=== PATIENT | female | born 1985 ===

== ENCOUNTER 2017-08-15 14:21 | Emergency (ER) | payer SELFPAY ==
[2017-08-15 14:55] VITALS: O2SAT 100
[2017-08-15] MEDS ORDERED: Iohexol 240 (50 ml) PO STA (16:06)
[2017-08-15] MEDS ORDERED: Lactated Ringer's 1,000 ML IV STA (16:07)
[2017-08-15] MEDS ORDERED: Iohexol 240 (50 ml) ONE (16:12)
[2017-08-15 16:36] LABS: BASO # 0.1 K/uL (0.0-0.2); BASO % 0.9 % (0.0-2.0); EOS # 0.2 K/uL (0.0-0.7); EOS % 1.8 % (0.0-4.0); HEMATOCRIT 41.7 % (34.0-47.0); LYMPH # 2.8 K/uL (1.0-4.3); LYMPH % 32.1 % (20.0-40.0); MEAN CELL VOLUME 78.8 fL (81.0-99.0); MONO # 1.1 K/uL (0.0-0.8); MONO % 12.9 % (0.0-10.0); NRBC % 0.1 % (0.0-2.0); RED CELL DISTRIBUTION WIDTH 14.4 % (11.5-14.5); WHITE BLOOD COUNT 8.7 K/uL (4.8-10.8)
[2017-08-15 16:38] LABS: RBC URINE 20 /hpf (0-3); URINE BACTERIA RARE (<OCC); URINE BILIRUBIN NEGATIVE (NEGATIVE); URINE COLOR Yellow (YELLOW); URINE GLUCOSE (UA) NORMAL (Normal); URINE KETONE NEGATIVE (NEGATIVE); URINE LEUKOCYTE ESTERASE NEG Leu/uL (Negative); URINE PROTEIN NEGATIVE (NEGATIVE); URINE UROBILINOGEN NORMAL mg/dL (0.2-1.0); WBC URINE 2 /hpf (0-5)
[2017-08-15 16:39] LABS: URINE BLOOD 3+ (NEGATIVE)
[2017-08-15 16:53] LABS: CALCIUM 9.4 mg/dl (8.6-10.4); GFR AFRICAN-AMERICAN > 60
[2017-08-15 16:55] LABS: ALB/GLOB RATIO 1.3 (1.0-2.1); ALKALINE PHOSPHATASE 109 U/L (38-126); ALT/SGPT 28 U/L (9-52); AST/SGOT 60 U/L (14-36); BILIRUBIN,TOTAL 1.7 mg/dL (0.2-1.3); BLOOD UREA NITROGEN 15 mg/dL (7-17); CARBON DIOXIDE 25 mmol/L (22-30); CHLORIDE 104 mmol/L (98-107); GLUCOSE,RANDOM 110 mg/dL (65-105); POTASSIUM 5.5 mmol/L (3.6-5.2); SODIUM 138 mmol/L (132-148); TOTAL PROTEIN 7.9 g/dL (6.3-8.3)
--- NOTE | 2017-08-15 17:05 | C.PDOC ---
History Of Present Illness 31yo female, presents to ED for evaluation of diffuse abdominal pain for the past week. She also reports mild nausea, denies any vomiting, fever or dysuria. No other complaints. Time Seen by Provider: 08/15/17 15:55 Chief Complaint (Nursing): Abdominal Pain History Per: Patient History/Exam Limitations: no limitations Onset/Duration Of Symptoms: Days Current Symptoms Are (Timing): Still Present Location Of Pain/Discomfort: Diffuse Associated Symptoms: Nausea. denies: Fever, Vomiting Past Medical History Reviewed: Historical Data, Nursing Documentation, Vital Signs Vital Signs: Last Vital Signs Temp 98.6 F 08/15/17 18:36 Pulse 100 H 08/15/17 18:36 Resp 18 08/15/17 18:36 BP 116/70 08/15/17 18:36 Pulse Ox 100 08/15/17 18:36 - Medical History PMH: No Chronic Diseases Family History: States: No Known Family Hx - Social History Hx Alcohol Use: No Hx Substance Use: No - Immunization History Hx Influenza Vaccination: No Review Of Systems Except As Marked, All Systems Reviewed And Found Negative. Constitutional: Negative for: Fever Gastrointestinal: Positive for: Nausea, Abdominal Pain. Negative for: Vomiting , Diarrhea Genitourinary: Negative for: Dysuria Physical Exam - Physical Exam Appears: Non-toxic, No Acute Distress Skin: Normal Color Head: Atraumatic, Normacephalic Eye(s): bilateral: Normal Inspection Neck: Supple Cardiovascular: Rhythm Regular Respiratory: Normal Breath Sounds Gastrointestinal/Abdominal: Soft, Tenderness (diffuse) Back: Normal Inspection Extremity: Normal ROM Neurological/Psych: Oriented x3 ED Course And Treatment - Laboratory Results Result Diagrams: 08/15/17 16:25 08/15/17 16:25 O2 Sat by Pulse Oximetry: 100 (RA) Pulse Ox Interpretation: Normal - CT Scan/US CT Adomen/Pelvis Other Rad Studies (CT/US): Radiology Report Reviewed CT/US Interpretation: IMPRESSION: 1. No suspicious acute findings bilaterally. 2. Bilateral intrarenal calculi are nonobstructive and sub cm size, greater the right than left kidney. 3. 1.1 right adnexal cyst Medical Decision Making Medical Decision Making: Plan: -- CT Abdomen w/ PO & IV Contrast -- Labs -- Lactated Ringer's IV -- Pepcid 20 mg IVP -- Zofran 8 mg IVP Time: 183 Patient reports improvement of pain. Labs reviewed and within normal limits. Patient stable for discharge home. Disposition - Disposition Referrals: [facility] [Outside] [facility] [Outside] Disposition: HOME/ ROUTINE Disposition Time: 18:30 Condition: IMPROVED Additional Instructions: Thank you for letting us take care of you today. The emergency medical care you received today was directed at your acute symptoms. If you were prescribed any medication, please fill it and take as directed. It may take several days for your symptoms to resolve. Return to the Emergency Department if your symptoms worsen, do not improve, or if you have any other problems. Please contact your doctor or call one of the physicians/clinics you have been referred to that are listed on the Patient Visit Information form that is included in your discharge packet. Bring any paperwork you were given at discharge with you along with any medications you are taking to your follow up visit. Our treatment cannot replace ongoing medical care by a primary care provider (PCP) outside of the emergency department. Thank you for allowing the [facility] team to be part of your care today. Follow up with the clinic this week for outpatient care and management. Donnie por dejarnos atenderlo hoy. La atencin mdica de emergencia que recibi hoy estaba dirigida a mikki sntomas agudos. Si le prescribieron algn medicamento, llnelo y tome segn las indicaciones. Mikki sntomas pueden tardar varios martínez en resolverse. Regrese al Departamento de Emergencia si mikki s ntomas empeoran, no mejoran o si tiene algn otro problema. Comunquese con [place] mdico o llame a natalie de los mdicos / clnicas a los que amaro sido referido que figura en el formulario de Informacin de visita del paciente que se incluye en [place] paquete de marci. Traiga todos los documentos que recibi al momento del marci junto con los medicamentos que est tomando en [place] visita de seguimiento. Nuestro tratamiento no puede reemplazar la atencin mdica en curso por parte de un proveedor de atencin primaria (PCP) fuera del departamento de emergencias. Donnie por permitir que el equipo de [facility] sea parte de [place] cuidado hoy. Antony un seguimiento con la clnica esta semana para atencin y manejo ambulatorio. Prescriptions: Ranitidine HCl [Zantac] 150 mg PO BID #20 tablet Instructions: Gastritis (ED) Forms: Gen Discharge Inst [place]an - Clinical Impression Clinical Impression: Abdominal pain - Scribe Statement The provider has reviewed the documentation as recorded by the Scribe Melita Perez Provider Attestation: All medical record entries made by the Scribe were at my direction and personally dictated by me. I have reviewed the chart and agree that the record accurately reflects my personal performance of the history, physical exam, medical decision making, and the department course for this patient. I have also personally directed, reviewed, and agree with the discharge instructions and disposition.
[2017-08-15] MEDS ORDERED: Iodixanol 320 MG/ML 100 ML BOTTLE IV ONE (17:09)
--- NOTE | 2017-08-15 18:31 | CT ---
PROCEDURE: CT Abdomen and Pelvis with contrast HISTORY: diffuse abd pain COMPARISON: None. TECHNIQUE: Contrast dose: Visipaque 320, 100 cc Radiation dose: Total exam DLP = 425.40 mGy-cm. This CT exam was performed using one or more of the following dose reduction techniques: Automated exposure control, adjustment of the mA and/or kV according to patient size, and/or use of iterative reconstruction technique. FINDINGS: LOWER THORAX: Unremarkable. LIVER: Unremarkable. No gross lesion or ductal dilatation. GALLBLADDER AND BILE DUCTS: Unremarkable. PANCREAS: Unremarkable. No gross lesion or ductal dilatation. SPLEEN: Unremarkable. ADRENALS: Unremarkable. No mass. KIDNEYS AND URETERS: Tiny intrarenal calculi are identified infrequently at the right greater than left kidney with a 5 mm calculus appreciate the lower pole right kidney a similar 1 on the left. The remaining calculi are 2 - 3 mm greatest dimension. No obstructive uropathy bilaterally. No perinephric reaction appreciated throughout. No definite cyst or solid renal mass bilaterally. VASCULATURE: Unremarkable. No aortic aneurysm. BOWEL: Unremarkable. No obstruction. No gross mural thickening. APPENDIX: Normal appendix. PERITONEUM: Unremarkable. No free fluid. No free air. LYMPH NODES: Shotty central mesenteric and pericecal lymph nodes are occasionally encountered. BLADDER: A distended thin walled urinary bladder is identified which is otherwise unremarkable appearing. REPRODUCTIVE: 1.1 right adnexal cyst is identified with the left adnexal compartment unremarkable. BONES: No acute fracture. OTHER FINDINGS: None. IMPRESSION: 1. No suspicious acute findings bilaterally. 2. Bilateral intrarenal calculi are nonobstructive and sub cm size, greater the right than left kidney. 3. 1.1 right adnexal cyst
[2017-08-15 18:37] VITALS: BP 116/70; PULSE 100; RESP 18; TEMP 98.6
== END 2017-08-15 18:44 | disposition home or self-care (01) ==
LOC: C.ER 14:21
DX: R10.9 Unspecified abdominal pain (principal)
CPT/HCPCS: 74177; 80053; 81001; 83690; 85025; 87086; 96361; 96374; 96375; 99284; J2405; J7120; Q9966; Q9967